=== PATIENT | male | born 1980 | race Caucasian/White ===

== ENCOUNTER 2021-07-21 19:54 | Emergency (ER) | payer OTHER ==
[~2021-07-21] VITALS: Ht 185.4 cm; Wt 99.8 kg
[~2021-07-21 19:54] MED LIST: ADDERALL XR 2020 MG PO; SUCRALFATE1 GM PO
[2021-07-21] MEDS ORDERED: CASIRIVIMAB/IMDEVIMAB 10 ML in SODIUM CHLORIDE 0.9% 100 ML IV ONE (20:30)
== END 2021-07-21 21:52 | disposition home or self-care (01) ==
LOC: ER 20:00
DX: U07.1 COVID-19 (principal); R50.9 Fever, unspecified; R05.9 Cough, unspecified; F90.9 Attention-deficit hyperactivity disorder, unspecified type
CPT/HCPCS: 99284

== ENCOUNTER 2023-10-03 16:19 | Emergency (ER) | payer OTHER ==
[~2023-10-03] VITALS: Ht 185.4 cm; Wt 99.8 kg
[2023-10-03 16:19] VITALS: O2SAT 100
[2023-10-03] MEDS ORDERED: LEVOFLOXACIN500 MG PO (16:52)
[2023-10-03] MEDS ORDERED: MUPIROCIN22 GM TOP (16:52)
[2023-10-03] MEDS ORDERED: BACTRIM DS TAB1 EACH PO (16:52)
== END 2023-10-03 17:23 | disposition home or self-care (01) ==
LOC: ER 16:48
DX: L03.114 Cellulitis of left upper limb (principal); M70.22 Olecranon bursitis, left elbow; F90.9 Attention-deficit hyperactivity disorder, unspecified type
CPT/HCPCS: 99283